=== PATIENT | female | born 1990 ===

== ENCOUNTER 2017-09-19 12:15 | Inpatient (IN) | payer OTHER ==
[~2017-09-19] VITALS: Ht 162.6 cm; Wt 3.6 kg
[2017-09-22] MEDS ORDERED: PRENATAL 19 TA1 EACH PO (09:23)
== END 2017-09-24 11:19 | disposition home or self-care (01) | DRG 766 ==
LOC: OB/GYN 12:15 → LDR 09-22 06:24 → OB/GYN 09-22 19:16
PROVIDERS: Obstetrics & Gynecology
PROC: 4A1HXCZ Monitoring of Products of Conception, Cardiac Rate, External Approach (ICD-10-PCS; 2017-09-22)
PROC: 4A033R1 Measurement of Arterial Saturation, Peripheral, Percutaneous Approach (ICD-10-PCS; 2017-09-22)
PROC: 10D00Z1 Extraction of Products of Conception, Low, Open Approach (ICD-10-PCS; principal; 2017-09-22 16:30)
DX: O33.9 Maternal care for disproportion, unspecified (principal); O62.1 Secondary uterine inertia; Z37.0 Single live birth; Z3A.40 40 weeks gestation of pregnancy

== ENCOUNTER 2018-12-16 11:56 | Inpatient (IN) | payer OTHER ==
[~2018-12-16] VITALS: Ht 162.6 cm; Wt 3.2 kg
[~2018-12-16 11:56] MED LIST: PRENATAL 19 TA1 EACH PO
== END 2018-12-25 12:50 | disposition home or self-care (01) | DRG 785 ==
LOC: OB/GYN 12-22 05:46 → O/R 12-22 05:46 → OB/GYN 12-22 07:00
PROVIDERS: ADMIT Obstetrics & Gynecology
PROC: 0UL70ZZ Occlusion of Bilateral Fallopian Tubes, Open Approach (ICD-10-PCS; 2018-12-22)
PROC: 4A1HXCZ Monitoring of Products of Conception, Cardiac Rate, External Approach (ICD-10-PCS; 2018-12-22)
PROC: 10D00Z1 Extraction of Products of Conception, Low, Open Approach (ICD-10-PCS; principal; 2018-12-22 07:00)
DX: O82 Encounter for cesarean delivery without indication (principal); Z3A.38 38 weeks gestation of pregnancy; Z37.0 Single live birth; Z30.2 Encounter for sterilization